=== PATIENT | female | born 1980 | race African-American/Black ===

== ENCOUNTER 2017-01-03 05:33 | Emergency (ER) | payer OTHER ==
[~2017-01-03] VITALS: Ht 165.1 cm; Wt 83.9 kg
[~2017-01-03 05:33] MED LIST: MEDR150D3 IM; NITR100C62 PO
[2017-01-03] MEDS ORDERED: IV NORMAL SALINE 1,000ML 1,000 ML ONE (06:08)
--- NOTE | 2017-01-03 06:08 | EKG ---
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
[2017-01-03] MEDS ORDERED: IV NORMAL SALINE 1,000ML 1,000 ML IV ONE (06:15)
--- NOTE | 2017-01-03 06:19 | PHYS DOC ---
Past History Past Medical History: No Pertinent History Past Surgical History: Smoking: Non-smoker Alcohol Use: None Drug Use: None Adult General Chief Complaint Chief Complaint: RAPID HEART RATE HPI HPI Patient is a 36-year-old female who presents with a complaint of heart racing, also feeling "like she is sinking into the bed", some intermittent arm and hand and foot numbness, anxiety. Patient is breast-feeding a 4-month-old. She has 3 other kids at home as well. She volunteers that she has not been getting enough sleep. She is staying up too late at night after her kids go to bed. She is not eating well. She sometimes accidentally misses breakfast. She is worried about her health. She presents with her 4-month-old baby and also her 18-year-old daughter who is helping with the baby. Her other 2 kids are home asleep. She woke up this morning with the symptoms. Review of Systems Review of Systems Constitutional: Denies fever or chills [] Eyes: Denies change in visual acuity, redness, or eye pain [] HENT: Denies nasal congestion or sore throat [] Respiratory: Denies cough or shortness of breath [] Cardiovascular: As in history of present illness GI: Denies vomiting or diarrhea : Denies dysuria or hematuria [] Musculoskeletal: Denies back pain or joint pain [] Integument: Denies rash or skin lesions [] Neurologic: As in history of present illness Current Medications Current Medications Current Medications Medications (Trade) Dose Ordered Sig/Khalif Start Time Stop Time Status Last Admin Dose Admin Sodium Chloride 1,000 ml @ As Directed STK-MED ONCE 01/03/17 06:08 01/03/17 06:09 [place] Allergies Allergies Allergies Coded Allergies Type Severity Reaction Last Updated Verified No Known Drug Allergies 09/24/13 No Physical Exam Physical Exam Constitutional: Well developed, well nourished, no acute distress, non-toxic appearance. Alert, mentating normally, heart rate 66. HENT: Normocephalic, atraumatic, bilateral external ears normal, nose normal. [ ] Eyes: conjunctiva normal, no discharge. [] Neck: Normal range of motion, no stridor. [] Cardiovascular:Heart rate regular rhythm, no murmur [] Lungs & Thorax: Bilateral breath sounds clear to auscultation , no murmur Abdomen: soft, no tenderness, no masses, no pulsatile masses. [] Skin: Warm, dry, no erythema, no rash. [] Extremities: No tenderness, no cyanosis, no clubbing, ROM intact, no edema. [] Neurologic: Alert and oriented X 3, normal motor function, normal sensory function, no focal deficits noted. No speech disturbance. No facial asymmetry. Negative pronator drift. Current Patient Data Vital Signs Vital Signs Date Time Temp Pulse Resp B/P (MAP) Pulse Ox O2 Delivery O2 Flow Rate FiO2 01/03/17 05:52 98.1 80 18 100 Room Air EKG EKG 12-lead EKG read by me. Sinus rhythm. Heart rate 80. There are no acute ST or T wave changes indicative of ischemia or infarction. No STEMI. 0547[] Radiology/Procedures Radiology/Procedures [] Course & Med Decision Making Course & Med Decision Making Pertinent Labs and Imaging studies reviewed. (See chart for details) 36-year-old female presents with multiple nonspecific complaints. She is breast- feeding a 4-month-old and has 3 other kids. We talked about taking care of herself. Labs were obtained, all normal. EKG normal. Patient was monitored and observed in the emergency department and tachycardic and had no observed rhythm disturbances. Patient was reassured. She was given a liter of IV saline. She was up to urinate before the liter finished. Patient is stable for discharge. We talked about a good healthy diet, plenty of fluids, plenty of sleep. See instructions for plan. [] Dragon Disclaimer Dragon Disclaimer This chart was dictated in whole or in part using Voice Recognition software in a busy, high-work load, and often noisy Emergency Department environment. It may contain unintended and wholly unrecognized errors or omissions. Departure Departure: Impression: Primary Impression: Heart palpitations Additional Impression: Mother currently breast-feeding Disposition: 01 HOME, SELF-CARE Condition: IMPROVED Referrals: BERTRAM NEAL MD (PCP) Patient Instructions: Palpitations, [id number] Additional Instructions: Today, EKG and labs were normal in the emergency department. Thyroid blood test is not back yet, please call your doctor's office this week to ask them to check on that result for you. As we discussed, be sure you are drinking plenty of fluids, eating a healthy diet, taking vitamins, and getting plenty of sleep. All of these things are important to be able to keep your self healthy while you are making breastmilk. Today in the ER, we did not see any abnormal heart rhythms. If you continue to have a sensation of heart beating fast, talk to your doctor, you may need to wear an outpatient heart monitor if it continues. However, being dehydrated and sleep deprived can certainly cause these symptoms as well. Problem Qualifiers CORI TOBIAS MD Jan 03, 2017 06:19
[2017-01-03 06:20] LABS: BASO % 0 % (0-3); EOS # 0.3 x10^3/uL (0.0-0.7); EOS % 4 % (0-3); HEMATOCRIT 38.3 % (36.0-47.0); HEMOGLOBIN 12.7 g/dL (12.0-15.5); LYMPH % 37 % (24-48); MEAN CORPUSCULAR HEMOGLOBIN 27 pg (25-35); MEAN CORPUSCULAR HGB CONC 33 g/dL (31-37); MEAN CORPUSCULAR VOLUME 80 fL (79-100); MONO # 0.5 x10^3/uL (0.0-1.1); MONO % 7 % (0-9); NEUT # 4.1 x10^3uL (1.8-7.7); NEUT % 52 % (31-73); PLATELET COUNT 232 x10^3/uL (140-400); RED BLOOD COUNT 4.78 x10^6/uL (3.50-5.40); RED CELL DISTRIBUTION WIDTH 13.3 % (11.5-14.5)
[2017-01-03 06:21] LABS: PREG TEST PT QUAL NEGATIVE (NEG)
[2017-01-03 06:26] LABS: ALBUMIN 3.8 g/dL (3.4-5.0); ALBUMIN/GLOBULIN RATIO 0.9 (1.0-1.7); CALCIUM 8.9 mg/dL (8.5-10.1); CREATININE 0.8 mg/dL (0.6-1.0); GFR 97.1; POTASSIUM 3.5 mmol/L (3.5-5.1); TOTAL BILIRUBIN 0.4 mg/dL (0.2-1.0)
[2017-01-03 07:35] VITALS: BP 121/80
== END 2017-01-03 07:40 | disposition home or self-care (01) ==
LOC: ER 05:33
DX: R00.2 Palpitations (principal); R00.0 Tachycardia, unspecified
CPT/HCPCS: 36415; 80053; 84443; 84484; 84703; 85025; 93005; 96360; 99285-25; J7030

== ENCOUNTER 2017-05-09 05:43 | Emergency (ER) | payer OTHER ==
[~2017-05-09] VITALS: Ht 165.1 cm; Wt 83.9 kg
--- NOTE | 2017-05-09 06:54 | PHYS DOC ---
Past History Past Medical History: No Pertinent History Past Surgical History: Smoking: Non-smoker Alcohol Use: None Drug Use: None Adult General Chief Complaint Chief Complaint: ABDOMINAL PAIN HPI HPI Patient is a 36-year-old female who presents ambulatory to the ED. Patient states that she has had some vague abdominal discomfort off and on for a few days. It has been nonlocalized. She has had some nausea but no vomiting. No diarrhea. Last bowel movement was 2 days ago. Last night the patient thought she needed to have a bowel movement, tried, she was not able to have a bowel movement, but she felt a sharp pain in her abdomen that came and went quickly. She's never had this before. She began to worry about whether it might be related to her scar. The patient had a vertical in 2014, and she had a baby 9 months ago and had a Pfannenstiel incision . She has had no problems with her subsequently. Also had a BTL at the time. Patient denies urinary symptoms. She is breast-feeding so she drinks lots of fluids and she does urinate a lot but attributes that to being well hydrated. Denies fever or chills. States that about 2 weeks ago she fell on the stairs and hit her head and has had some intermittent headache and nausea since then but that is not why she is here today. Patient states that she is always a bit concerned about her "female parts" and wants to make sure that this sharp pain was not something from her previous C- section. PCP Dr. Neal Review of Systems Review of Systems Constitutional: Denies fever or chills [] GI: As in history of present illness : Denies dysuria or hematuria [] Current Medications Current Medications Current Medications Medications (Trade) Dose Ordered Sig/Khalif Start Time Stop Time Status Last Admin Dose Admin Magnesium Citrate (Citroma) 296 ml 1X ONCE 05/09/17 07:00 05/09/17 07:01 UNV Allergies Allergies Allergies Coded Allergies Type Severity Reaction Last Updated Verified No Known Drug Allergies 09/24/13 No Physical Exam Physical Exam Constitutional: Well developed, well nourished, no acute distress, non-toxic appearance. Alert, mentating normally, no acute distress whatsoever, talkative. HENT: Normocephalic, atraumatic, bilateral external ears normal, nose normal. [ ] Eyes: conjunctiva normal, no discharge. [] Neck: Normal range of motion, no stridor. [] Cardiovascular:Heart rate regular rhythm, no murmur [] Lungs & Thorax: Bilateral breath sounds clear to auscultation [] Abdomen: Bowel sounds normal, soft, nondistended, no tenderness, no masses, no pulsatile masses. Abdomen exam is entirely benign with no tenderness, no guarding, no rebound whatsoever. Skin: Warm, dry, no erythema, no rash. [] Extremities: No tenderness, no cyanosis, no clubbing, ROM intact, no edema. [] Neurologic: Alert and oriented X 3, normal motor function, no focal deficits noted. [] Current Patient Data Vital Signs Vital Signs Date Time Temp Pulse Resp B/P (MAP) Pulse Ox O2 Delivery O2 Flow Rate FiO2 05/09/17 06:02 98.2 85 20 98 Room Air EKG EKG [] Radiology/Procedures Radiology/Procedures [] Course & Med Decision Making Course & Med Decision Making Pertinent Labs and Imaging studies reviewed. (See chart for details) 36-year-old female had a brief episode of sharp abdominal pain last night when she thought she did have a bowel movement but was not able to have a bowel movement. Last BM was 2 days ago. She is now pain-free and her abdominal exam is entirely benign. It sounds like the patient may have had a gas pain associated with constipation. We will try treating with a laxative. Discussed return precautions with the patient and advised follow-up with PCP. [] Dragon Disclaimer Dragon Disclaimer This electronic medical record was generated, in whole or in part, using a voice recognition dictation system. Departure Departure: Impression: Primary Impression: Abdominal pain Additional Impression: Constipation Disposition: HOME, SELF-CARE Condition: STABLE Referrals: BERTRAM NEAL MD (PCP) Patient Instructions: Constipation, Adult, [id number] Additional Instructions: Go home and drink the entire bottle of magnesium citrate. When you have had good "results" this should help your pain. Problem Qualifiers CORI TOBIAS MD May 09, 2017 06:54
[2017-05-09 07:24] VITALS: BP 137/87
[2017-05-09] MEDS ORDERED: MAGNESIUM CITRATE 296 ML SOLUTION. PO ONE (07:30)
== END 2017-05-09 07:24 | disposition home or self-care (01) ==
LOC: ER 05:43
DX: K59.00 Constipation, unspecified (principal); R51 Headache
CPT/HCPCS: 81025; 99281; 99282

== ENCOUNTER 2017-05-12 04:25 | Emergency (ER) | payer OTHER ==
[~2017-05-12] VITALS: Ht 165.1 cm; Wt 83.9 kg
[2017-05-12 04:30] VITALS: BP 137/87
[2017-05-12] MEDS ORDERED: ACET325T9 PO (04:57)
[2017-05-12] MEDS ORDERED: NAPR275T59 PO (04:57)
--- NOTE | 2017-05-12 04:57 | PHYS DOC ---
Past History Past Medical History: No Pertinent History Past Surgical History: Smoking: Non-smoker Alcohol Use: None Drug Use: None Adult General Chief Complaint Chief Complaint: feared UTI HPI HPI Patient is a 36-year-old female who presents ambulatory to the ED. she presents with lower abdominal pain as been bothering her for the last 10 days. Patient describes mild urgency without frequency or dysuria. She describes some mild back pain is gotten progressively worse in the lower back that is not worse with position. She has some mild nausea but no vomiting, no diarrhea but may be some history of constipation. Patient is 9 months she is a who is had some continuous vaginal discharge but nothing new. Patient says the abdominal pain is localized in the suprapubic region with without abdominal distention or localized trauma. Patient just started having menstrual periods again over the last 2 weeks after being without a mental. For 9 months while breast-feeding her child. Pain right now is mild to moderate PCP Dr. Neal Review of Systems Review of Systems Constitutional: Denies fever or chills [] Eyes: Denies change in visual acuity, redness, or eye pain [] HENT: Denies nasal congestion or sore throat [] Respiratory: Denies cough or shortness of breath [] Cardiovascular: No additional information not addressed in HPI [] GI: Patient complains of abdominal pain with nausea but no vomiting no diarrhea occasional constipation : Denies dysuria or hematuria patient describes some urgency and frequency without blood or discharge Musculoskeletal: Complains of mild low back pain Integument: Denies rash or skin lesions [] Neurologic: Patient is an intermittent daily headache for last 2 weeks not worst of life and sudden onset may be associated with a fall. Endocrine: Denies polyuria or polydipsia [] All other systems were reviewed and found to be within normal limits, except as documented in this note. Allergies Allergies Allergies Coded Allergies Type Severity Reaction Last Updated Verified No Known Drug Allergies 09/24/13 No Physical Exam Physical Exam Other vital signs recorded on chart within normal limits Constitutional: Well developed, well nourished, no acute distress, non-toxic appearance. [] HENT: Normocephalic, atraumatic, bilateral external ears normal, oropharynx moist, no oral exudates, Eyes: PERRLA, EOMI, conjunctiva normal, no discharge. [] Cardiovascular:Heart rate regular rhythm, no murmur [] Lungs & Thorax: Bilateral breath sounds clear to auscultation [] Abdomen: Bowel sounds normal, soft, no masses or pulsatile masses no guarding rebound organomegaly there is mild tenderness of the suprapubic region Skin: Warm, dry, no erythema, no rash. [] Back: Patient has mild tenderness to the erector spinae muscles the lumbar spine no CVA tenderness to palpation no midline tenderness to palpation Neurologic: Alert and oriented X 3, normal motor function, normal sensory function, no focal deficits noted. Normal gait[] Psychologic: Affect normal, judgement normal, mood normal. [] EKG EKG [] Radiology/Procedures Radiology/Procedures [] Course & Med Decision Making Course & Med Decision Making Pertinent Labs and Imaging studies reviewed. (See chart for details) []Patient presents again to the emergency department after being evaluated 2 days ago for "" constipation. Patient is actually concerned she may have a UTI she is presently breast-feeding and now on her menstrual period she has no fevers, no chills no diarrhea she has been diagnosed cost patient passes using mag citrate patient abdominal exam is relatively benign. Patient did drive herself here so I can only offer her nonsedating non narcotic medications Because patient was primarily concerned she had a UTI urine dipstick done here in the emergency part was negative for signs of infection, patient is not . Patient's abdomen is soft doubt appendicitis given duration of symptoms no fevers no localizing tenderness to the right lower quadrant. Patient has no Henderson's or McBurney's point tenderness on exam. No Davison Fuller sign. I have given her precautions to return if there is localized in the right lower quadrant she develops fevers and chills with localized. Constant She was no further workup at this time or follow-up with her regular doctor tomorrow. She is stated that she has felt better in the past using the next adjacent passing flatus which has relieved her symptoms. She had noted that her children sitting on her stomach that the pains come and go. At this time she is pain-free. We talked about using Tylenol Motrin for muscle scope low back pain At this point doubt cauda equina, renal disease, abdominal aneurysm, trauma, infection like epidural abscess or epidural hematoma doubt kidney stone or pyelonephritis discharge: I've spoken with the patient and/or caregivers. I've explained the patient's condition, diagnosis and treatment plan based on information available to me at this time. I've answered the patient's and/or caregivers questions and addressed any concerns. The patient and/or caregivers have a good understanding the patient's diagnosis, condition and treatment plan as can be expected at this point. Vital signs have been stabilized. The patient's condition is stable for discharge from the emergency department. The patient will pursue further outpatient evaluation with her primary care provider or other designated consulting physician as outlined in the discharge instructions. Patient and/or caregivers are agreeable to this plan of care and follow-up instructions have been explained in detail. The patient and/or caregivers have received these instructions in written format and expressed understanding of these discharge instructions. The patient and her caregivers are aware that if any significant change in condition or worsening of symptoms should prompt him to immediately return to this of the closest emergency department. If an emergent department is not readily available I would encourage him to call 911. Tani Disclaimer Dragon Disclaimer This electronic medical record was generated, in whole or in part, using a voice recognition dictation system. Departure Departure: Impression: Primary Impression: Abdominal pain Disposition: HOME, SELF-CARE Condition: IMPROVED Referrals: BERTRAM NEAL MD (PCP) Patient Instructions: Abdominal Pain Additional Instructions: discharge: I've spoken with the patient and/or caregivers. I've explained the patient's condition, diagnosis and treatment plan based on information available to me at this time. I've answered the patient's and/or caregivers questions and addressed any concerns. The patient and/or caregivers have a good understanding the patient's diagnosis, condition and treatment plan as can be expected at this point. Vital signs have been stabilized. The patient's condition is stable for discharge from the emergency department. The patient will pursue further outpatient evaluation with her primary care provider or other designated consulting physician as outlined in the discharge instructions. Patient and/or caregivers are agreeable to this plan of care and follow-up instructions have been explained in detail. The patient and/or caregivers have received these instructions in written format and expressed understanding of these discharge instructions. The patient and her caregivers are aware that if any significant change in condition or worsening of symptoms should prompt him to immediately return to this of the closest emergency department. If an emergent department is not readily available I would encourage him to call 911. Scripts Acetaminophen (TYLENOL) 325 Mg Tablet 1-2 TAB PO QID, #30 TAB 2 Refills Prov: REILLY MORALES MD 05/12/17 Naproxen Sodium (NAPROXEN SODIUM) 275 Mg Tablet 275 MG PO BID for 7 Days, #14 TAB Prov: REILLY MORALES MD 05/12/17 REILLY MORALES MD May 12, 2017 04:57
[2017-05-12] MEDS ORDERED: ACETAMINOPHEN 325 MG TABLET PO ONE (05:15)
[2017-05-12 07:32] LABS: BILIRUBIN,URINE NEG (NEG); CLARITY,URINE CLEAR; COLOR,URINE YELLOW; GLUCOSE,URINE NEG (NEG); NITRITE,URINE NEG (NEG); UROBILINOGEN,URINE 0.2 mg/dL (0.2 mg/dL)
== END 2017-05-12 05:08 | disposition home or self-care (01) ==
LOC: ER 04:25
DX: R10.30 Lower abdominal pain, unspecified (principal); M54.5 Low back pain; R11.0 Nausea; Z98.890 Other specified postprocedural states
CPT/HCPCS: 81003; 81025; 99282

== ENCOUNTER 2017-08-10 12:14 | Emergency (ER) | payer OTHER ==
[~2017-08-10 12:14] MED LIST changes: +ACET325T9 PO; +NAPR275T59 PO
[2017-08-10 12:15] VITALS: BP 137/77
[2017-08-10] MEDS ORDERED: AMOX500C PO (12:59)
[2017-08-10] MEDS ORDERED: NAPR-683 PO (12:59)
--- NOTE | 2017-08-10 13:00 | PHYS DOC ---
Past History Past Medical History: No Pertinent History Past Surgical History: Smoking: Non-smoker Alcohol Use: None Drug Use: None Adult General Chief Complaint Chief Complaint: SORE THROAT HPI HPI 36-year-old female patient complaining of pain in left side of her throat since last night that getting worse today with radiation to left ear. Patient states she has more nasal congestion without cough, fever and chills, nausea and vomiting, abdominal pain and shortness of breath. Patient had sick contacts at home. Patient rated her pain 5/10 and does not want pain medication in ER. She currently breast-feeding 1-year-old baby. Review of Systems Review of Systems Constitutional: Denies fever or chills [] Eyes: Denies change in visual acuity, redness, or eye pain [] HENT: Reports nasal congestion and sore throat [] Respiratory: Denies cough or shortness of breath [] Cardiovascular: No additional information not addressed in HPI [] GI: Denies abdominal pain, nausea, vomiting, bloody stools or diarrhea [] : Denies dysuria or hematuria [] Musculoskeletal: Denies back pain or joint pain [] Integument: Denies rash or skin lesions [] Neurologic: Denies headache, focal weakness or sensory changes [] Endocrine: Denies polyuria or polydipsia [] All other systems were reviewed and found to be within normal limits, except as documented in this note. Allergies Allergies Allergies Coded Allergies Type Severity Reaction Last Updated Verified No Known Drug Allergies 09/24/13 No Physical Exam Physical Exam Constitutional: Well developed, well nourished, mild distress, non-toxic appearance. [] HENT: Normocephalic, atraumatic, bilateral external ears normal, oropharynx moist, left tonsillar erythema and edema without exudate nose normal. [] Eyes: PERRLA, EOMI, conjunctiva normal, no discharge. [] Neck: Normal range of motion, no tenderness, supple, no stridor. [] Cardiovascular:Heart rate regular rhythm, no murmur [] Lungs & Thorax: Bilateral breath sounds clear to auscultation [] Neurologic: Alert and oriented X 3, normal motor function, normal sensory function, no focal deficits noted. [] Psychologic: Affect normal, judgement normal, mood normal. [] EKG EKG [] Radiology/Procedures Radiology/Procedures [] Course & Med Decision Making Course & Med Decision Making Pertinent Labs reviewed. (See chart for details) Evaluation of patient in ER showed 36-year-old female patient with complaining of left sore throat. Patient had erythema without exudate of left tonsillar and negative strep test. Plan to discharge patient home with diagnosis of pharyngitis and prescription of amoxicillin and Naprosyn. [] Dragon Disclaimer Dragon Disclaimer This electronic medical record was generated, in whole or in part, using a voice recognition dictation system. Departure Departure: Impression: Primary Impression: Acute pharyngitis Disposition: HOME, SELF-CARE (at 1255) Condition: STABLE Referrals: BERTRAM NEAL MD (PCP) Patient Instructions: Sore Throat Additional Instructions: Drink plenty of liquids Follow-up with your primary care physician in 3-5 days Return to ER if not getting better Scripts Naproxen (NAPROSYN) 500 Mg Tablet 1 TAB PO BID, #14 TAB 2 Refills Prov: ALCIRA GRAHAM MD 08/10/17 Amoxicillin (AMOXICILLIN) 500 Mg Capsule 1 CAP PO TID, #30 CAP Prov: ALCIRA GRAHAM MD 08/10/17 ALCIRA GRAHAM MD Aug 10, 2017 13:00
== END 2017-08-10 13:08 | disposition home or self-care (01) ==
LOC: ER 12:14
DX: J02.9 Acute pharyngitis, unspecified (principal)
CPT/HCPCS: 87070; 87880; 99283

== ENCOUNTER 2018-04-22 16:44 | Emergency (ER) | payer OTHER ==
[~2018-04-22] VITALS: Ht 162.6 cm; Wt 87.1 kg
[~2018-04-22 16:44] MED LIST changes: +AMOX500C PO; +NAPR-683 PO
--- NOTE | 2018-04-22 17:27 | PHYS DOC ---
Past History Past Medical History: No Pertinent History Past Surgical History: Smoking: Non-smoker Alcohol Use: Rarely Drug Use: None Adult General Chief Complaint Chief Complaint: chest pain HPI HPI Patient is a 37 year old female brought in by EMS because of chest pain, dizziness, nausea. Patient states she was at home and doing daily house chores suddenly left upper chest pain that last for few seconds with radiation to left arm and associated with dizziness and nausea. Patient states she decided to come to ER. Later on decided to call 911. Patient states she had the same episode in 2014 after she lost her child with diagnosis of panic attack and thinks she had another episode of panic attack. Patient does not have cardiac risk factor. Review of Systems Review of Systems Constitutional: Denies fever or chills [] Eyes: Denies change in visual acuity, redness, or eye pain [] HENT: Denies nasal congestion or sore throat [] Respiratory: Denies cough or shortness of breath [] Cardiovascular: No additional information not addressed in HPI [] GI: Denies abdominal pain, nausea, vomiting, bloody stools or diarrhea [] : Denies dysuria or hematuria [] Musculoskeletal: Denies back pain or joint pain [] Integument: Denies rash or skin lesions [] Neurologic: Denies headache, focal weakness or sensory changes [] Endocrine: Denies polyuria or polydipsia [] All other systems were reviewed and found to be within normal limits, except as documented in this note. Allergies Allergies Allergies Coded Allergies Type Severity Reaction Last Updated Verified No Known Drug Allergies 09/24/13 No Physical Exam Physical Exam Constitutional: Well developed, well nourished, no acute distress, non-toxic appearance. [] HENT: Normocephalic, atraumatic Eyes: PERRLA, EOMI, conjunctiva normal, no discharge. [] Neck: Normal range of motion, no tenderness, supple, no stridor. [] Cardiovascular:Heart rate regular rhythm, no murmur [] Lungs & Thorax: Bilateral breath sounds clear to auscultation [] Abdomen: Bowel sounds normal, soft, no tenderness, no masses, no pulsatile masses. [] Skin: Warm, dry, no erythema, no rash. [] Back: No tenderness, no CVA tenderness. [] Extremities: No tenderness, no cyanosis, no clubbing, ROM intact, no edema. [] Neurologic: Alert and oriented X 3, normal motor function, normal sensory function, no focal deficits noted. [] Psychologic: Affect anxious, judgement normal, mood normal. [] Current Patient Data Vital Signs Vital Signs Date Time Temp Pulse Resp B/P (MAP) Pulse Ox O2 Delivery O2 Flow Rate FiO2 04/22/18 16:45 98.3 76 20 100 Room Air EKG EKG EKG interpreted by me. EKG at 1702 showed normal sinus rhythm at rate of 75, normal interval and axis, no acute ST and T-wave abnormalities. Radiology/Procedures Radiology/Procedures [address] [address] IMAGING REPORT Signed PATIENT: GINA NULL ACCOUNT: [id number] : 1980 LOCATION: ER AGE: 37 SEX: F EXAM STATUS: PRE ER ORD. PHYSICIAN: ALCIRA GRAHAM MD REASON: chest pain pain PROCEDURE: PORTABLE CHEST 1V PORTABLE CHEST 1V History: SHARP CHEST PAIN WITH DIZZINESS Comparison: None. Findings: Single view of the chest is submitted. There is no infiltrate, pneumothorax, or effusion. The pericardial cardiac silhouette is within normal limits in size. Impression: 1. There is no radiographic evidence of acute cardiopulmonary disease. Electronically signed by: Hesham Proctor MD (04/22/2018 5:42 PM) [facility] DICTATED AND SIGNED BY: HESHAM PROCTOR MD DATE: 04/22/18 1749 CC: ALCIRA GRAHAM MD; BERTRAM NEAL MD ~ Course & Med Decision Making Course & Med Decision Making Pertinent Labs and Imaging studies reviewed. (See chart for details) Evaluation of patient in ER showed 37-year-old female patient with history of previous episodes of panic attacks with complaining of 2 episodes of short time chest pain with dizziness and nausea that his arrival to ER. EKG and exam was unremarkable. Labs showed hemoglobin of 11 and patient states she has heavy menstruation and plans to follow up with her [employer]. Dragon Disclaimer Dragon Disclaimer This electronic medical record was generated, in whole or in part, using a voice recognition dictation system. Departure Departure: Impression: Primary Impression: Panic attack Additional Impression: Anemia Disposition: 01 HOME, SELF-CARE Condition: STABLE Referrals: BERTRAM NEAL MD (PCP) Patient Instructions: Anemia, FAQs, Anxiety and Panic Attacks Additional Instructions: Drink plenty of liquids Follow-up with your primary care physician in 3-5 days Return to ER if not getting better Problem Qualifiers ALCIRA GRAHAM MD Apr 22, 2018 17:27
--- NOTE | 2018-04-22 17:31 | EKG ---
[address] [address] Test Date: 2018-04-22 Test Time: 17:02:01 Pat Name: GINA NULL Department: Room: Gender: [employer]: : 1980 Requested By: ALCIRA GRAHAM Order Number: [id number] Reading MD: Honorio Faust MD Measurements Intervals [place] Rate: P: HI: QRS: QRSD: T: QT: QTc: Interpretive Statements SR Electronically Signed On 04-26-2018 10:36:24 TEST CENTER ADMINISTRATOR by Honorio Faust MD
[2018-04-22 17:35] LABS: BASO # 0.1 x10^3/uL (0.0-0.2); BASO % 1 % (0-3); EOS # 0.2 x10^3/uL (0.0-0.7); EOS % 3 % (0-3); HEMATOCRIT 34.1 % (36.0-47.0); LYMPH # 2.1 x10^3/uL (1.0-4.8); LYMPH % 28 % (24-48); MEAN CORPUSCULAR HEMOGLOBIN 25 pg (25-35); MEAN CORPUSCULAR HGB CONC 32 g/dL (31-37); MEAN CORPUSCULAR VOLUME 77 fL (79-100); MONO # 0.4 x10^3/uL (0.0-1.1); MONO % 5 % (0-9); NEUT # 4.8 x10^3uL (1.8-7.7); NEUT % 63 % (31-73); PLATELET COUNT 272 x10^3/uL (140-400); RED BLOOD COUNT 4.44 x10^6/uL (3.50-5.40); RED CELL DISTRIBUTION WIDTH 14.1 % (11.5-14.5); WHITE BLOOD COUNT 7.5 x10^3/uL (4.0-11.0)
--- NOTE | 2018-04-22 17:46 | RAD ---
PORTABLE CHEST 1V History: SHARP CHEST PAIN WITH DIZZINESS Comparison: None. Findings: Single view of the chest is submitted. There is no infiltrate, pneumothorax, or effusion. The pericardial cardiac silhouette is within normal limits in size. Impression: 1. There is no radiographic evidence of acute cardiopulmonary disease. Electronically signed by: Rik Proctor MD (04/22/2018 5:42 PM) [facility]
[2018-04-22 17:47] LABS: ALBUMIN 3.8 g/dL (3.4-5.0); ALBUMIN/GLOBULIN RATIO 0.9 (1.0-1.7); CALCIUM 8.7 mg/dL (8.5-10.1); CREATININE 0.7 mg/dL (0.6-1.0); GFR 112.7; MAGNESIUM 1.9 mg/dL (1.8-2.4); POTASSIUM 3.4 mmol/L (3.5-5.1); TOTAL BILIRUBIN 0.3 mg/dL (0.2-1.0)
[2018-04-22 18:00] VITALS: BP 114/83
== END 2018-04-22 18:00 | disposition home or self-care (01) ==
LOC: ER 16:44
DX: F41.0 Panic disorder [episodic paroxysmal anxiety] (principal); D64.9 Anemia, unspecified
CPT/HCPCS: 36415; 71045; 80053; 82550; 83735; 84484; 85025; 93005; 99284